=== PATIENT | female | born 1980 | race Caucasian/White ===

== ENCOUNTER 2025-07-01 18:12 | Inpatient (IN) | payer OTHER ==
[2025-07-01 18:35] VITALS: BMI 53.6
[2025-07-01] MEDS ORDERED: LOPERAMIDE HCL 2 MG CAPSULE PO PRN (20:37)
[2025-07-01] MEDS ORDERED: DICYCLOMINE HCL 10 MG CAPSULE PO PRN (20:37)
[2025-07-01] MEDS ORDERED: MAG HYDROX/AL HYDROX/SIMETH 30 ML UNIT-DOSE CUP PO PRN (20:37)
[2025-07-01] MEDS ORDERED: MAGNESIUM HYDROX 2400MG/30ML ORAL SUSPENSION 30 ML CUP PO PRN (20:37)
[2025-07-01] MEDS ORDERED: NICOTINE POLACRILEX 2 MG GUM BUC PRN (20:37)
[2025-07-01] MEDS ORDERED: NALOXONE (NARCAN) HCL 4 MG/0.1 ML SPRAY NS PRN (20:37)
[2025-07-01] MEDS ORDERED: IBUPROFEN 400 MG TABLET (FP) PO PRN (20:37)
[2025-07-01] MEDS ORDERED: BENZOCAINE/MENTHOL (CHLORASEPTIC ) LOZENGE MM PRN (20:37)
[2025-07-01] MEDS ORDERED: POLYETHYLENE GLYCOL (HEALTHYLAX) 3350 17 GM PACKET PO PRN (20:37)
[2025-07-01] MEDS ORDERED: BISMUTH SUBSALICYLATE 524 MG/30 ML PO PRN (20:37)
[2025-07-01] MEDS ORDERED: guaiFENesin 600 MG TABLET.ER (FP) PO PRN (20:37)
[2025-07-01] MEDS ORDERED: BENZONATATE 200 MG CAPSULE PO PRN (20:37)
[2025-07-01] MEDS ORDERED: ACETAMINOPHEN 325 MG TABLET (FP) PO PRN (20:37)
[2025-07-01] MEDS ORDERED: MELATONIN 5 MG TABLETS ONE (21:51)
[2025-07-01] MEDS ORDERED: levETIRAcetam 500 MG TABLET (FP) PO ONE (21:51)
[2025-07-01] MEDS: MELATONIN 5 MG TABLETS PO SCH (22:00)
[2025-07-01] MEDS: levETIRAcetam 500 MG TABLET (FP) PO SCH (22:00)
[2025-07-01] MEDS: THIAMINE 100 MG TABLET PO SCH (22:01)
[2025-07-01] MEDS: IBUPROFEN 600 MG TABLET (FP) PO PRN (22:22)
[2025-07-02] MEDS: METHOCARBAMOL 500 MG TABLET PO PRN (05:35)
[2025-07-02 10:28] LABS: MCHC 29.6 g/dl (32.2-35.5); MEAN CELL VOLUME 82.8 fl (79.4-94.8); MEAN PLT VOLUME 9.0 fl (9.4-12.3); RDW 16.0 % (12.2-17.1)
[2025-07-02] MEDS: PRENATAL VITAMINS W/ FOLIC ACID TABLET (FP) PO SCH (10:38)
[2025-07-02] MEDS: NICOTINE 21 MG/24 HOURS TOPICAL PATCH TD SCH (10:38)
[2025-07-02] MEDS: hydrOXYzine PAMOATE 25 MG CAPSULE (FP) PO PRN (10:41)
[2025-07-02] MEDS ORDERED: PNEUMOC 20-VAL CONJ-DIP CRM/PF 0.5 ML SYRINGE IM ONE (12:00)
[2025-07-02 12:07] LABS: CO2 26 mmol/L (21-32); GLUCOSE,RANDOM 113 mg/dL (74-106); TOT PROT 6.9 g/dl (6.4-8.2)
[2025-07-02 12:08] LABS: ALK PHOS 64 U/L (40-150); CREATININE 0.95 mg/dL (0.55-1.3); SGOT/AST 27 U/L (5-34); SGPT/ALT 22 U/L (0-55)
[2025-07-02] MEDS: ALBUTEROL SO4 HFA INHALER IH PRN (12:46)
[2025-07-02] MEDS: PNEUMOC 20-VAL CONJ-DIP CRM/PF 0.5 ML SYRINGE IM ONE (13:53)
[2025-07-02] MEDS: traZODone HCL 50 MG TABLET (FP) PO SCH (21:36)
[2025-07-04] MEDS: ONDANSETRON *ODT* 4 MG TABLET SL PRN (22:19)
[2025-07-06 09:54] VITALS: BP 119/60; PULSE 72; RESP 12; TEMP 97.7
== END 2025-07-06 09:42 | disposition home or self-care (01) | DRG 897 ==
LOC: YASAS 18:12 → Y3N 21:25
PROVIDERS: ADMIT Neuromusculoskeletal Medicine & OMM; ATTEND Allergy & Immunology
PROC: HZ2ZZZZ Detoxification Services for Substance Abuse Treatment (ICD-10-PCS; principal; 2025-07-01)
DX: F11.23 Opioid dependence with withdrawal (principal); F14.20 Cocaine dependence, uncomplicated; F12.20 Cannabis dependence, uncomplicated; F17.210 Nicotine dependence, cigarettes, uncomplicated; F31.9 Bipolar disorder, unspecified; F41.9 Anxiety disorder, unspecified; E11.59 Type 2 diabetes mellitus with other circulatory complications; I10 Essential (primary) hypertension; R56.9 Unspecified convulsions
CPT/HCPCS: 36415; 80053; 80307; 82962; 85027; 86780; 90677; 93005; 93010; Q0162